=== PATIENT | male | born 1935 | race Caucasian/White ===

== ENCOUNTER → 2018-06-23 | Outpatient (CLI) | payer OTHER | LOC: RAD 13:27 | DX: R06.00 Dyspnea, unspecified (principal) ==

== ENCOUNTER → 2019-12-08 | Outpatient (CLI) | payer OTHER | LOC: RAD 10:40 | PROVIDERS: ATTEND Pediatrics | DX: R91.8 Other nonspecific abnormal finding of lung field (principal); J98.11 Atelectasis; J98.4 Other disorders of lung ==